=== PATIENT | male | born 1990 | race Caucasian/White ===

== ENCOUNTER 2020-12-13 22:32 | Emergency (ER) | payer OTHER, SELFPAY ==
[2020-12-13 22:43] VITALS: BP 129/88; PULSE 78; RESP 16; TEMP 36.8; O2SAT 98; BMI 27.3
[2020-12-13 23:04] LABS: Strep A Nucleic Acid Negative (Negative)
[2020-12-13 23:39] LABS: Influenza A PCR NEGATIVE (Negative); Influenza B PCR NEGATIVE (Negative); Resp Syncy Virus RNA Qual PCR NEGATIVE (Negative); SARS COV2 PCR INHOUSE NEGATIVE (Negative)
--- NOTE | 2020-12-14 00:18 | ED.GENADULT ---
HPI - General Adult General Chief complaint: Upper Respiratory Symptoms Stated complaint: covid symptoms Time Seen by Provider: 12/14/20 00:11 Source: patient Mode of arrival: ambulatory Limitations: no limitations History of Present Illness HPI narrative: Patient comes emergency room complaining of a sore throat, cough and painful swallowing for the last couple of days. Patient states he is vaccinated for COVID-19. Patient denies any fever chills. Patient complaining of bilateral lymph node swelling in his neck. Related Data Allergies Allergy/AdvReac Type Severity Reaction Status Date / Time latex [LATEX] Allergy Mild RASH Unverified 01/04/20 16:29 midazolam [From VERSED] Allergy Unknown EXTREME Unverified 01/04/20 16:29 CONFUSION versed Allergy Unknown Uncoded 12/06/17 00:00 Review of Systems Review of Systems: Constitutional : No Weight loss, No Fever, No Chills, No Night Sweats, No Fatigue, No Malaise ENT/Mouth : Complaining of sore throat, painful swallowing, bilateral lymph nodes Eyes: No Eye Pain, No Swelling, No Redness, No Foreign Body, No Discharge, No Vision Changes Cardiovascular : No Chest Pain, No SOB, No Dyspnea on Exertion, No Orthopnea, No Edema, No Palpitations Respiratory : Complaining of Cough, No Sputum, No Wheezing, No Smoke Exposure, No Dyspnea Gastrointestinal : No Nausea, No Vomiting, No Diarrhea, No Constipation, No abdominal Pain, No Hematochezia, No Melena Genitourinary : no irregular bleeding, No Dysuria, No Urinary Frequency, No Hematuria, No Urinary Incontinence, No Urgency, No Flank Pain, No Urinary Flow Changes, No Hesitancy Musculoskeletal : No joint pain, No Myalgias, No Joint Swelling Skin : No Skin Lesions, No rash Neuro : No Weakness, No Numbness, No Paresthesias, No Loss of Consciousness, No Dizziness, No Headache Psych : No Anxiety/Panic, No Depression, No SI/HI/AH/VH, No Social Issues, Heme/Lymph: No Bruising, No Bleeding,No Lymphadenopathy Endocrine : No Polyuria, No Polydipsia, No Temperature Intolerance PMFSH Social History Social History Advance Directives: No Advance Directives Information Provided: No Physical Exam Vital Signs: Vital Signs: Last Vital Signs Temp 98.3 F 12/13/20 22:43 Pulse 78 12/13/20 22:43 Resp 16 12/13/20 22:43 BP 129/88 12/13/20 22:43 Pulse Ox 98 12/13/20 22:43 Body Mass Index 27.3 Const: Other: Appearance: Alert. Oriented X3. No acute distress. Eyes: Pupils equal, round and reactive to light. ENT: Erythematous oropharynx, no abscesses, no exudates Neck: Normal inspection. Neck supple. mild bilateral palpable lymph nodes No crepitus CVS: Normal heart rate and rhythm. Pulses normal. Normal S1 and S2 Respiratory: No respiratory distress. Breath sounds normal. No Wheezing. No rales Abdomen: Soft and nontender. No rigidity. No distention. good BS x4 Skin: Skin warm and dry. Normal skin color. Normal skin turgor. Extremities: No lower extremity edema. No lower extremity edema. No Lacerations. No Rash Neuro: Oriented X 3. No motor deficit. No sensory deficit. Moving all extermities. No slurred speech. Course Course Course Narrative: Patient tested negative for COVID-19, RSV and strep throat. Patient was given 1 dose of Decadron and oral lidocaine. Patient having a viral syndromes Medical Decision Making Lab Data Labs: Lab Results 12/13/20 12/13/20 Range/Units 22:50 22:50 Coronavirus (PCR) NEGATIVE (Negative) Influenza Type A (PCR) NEGATIVE (Negative) Influenza Type B (PCR) NEGATIVE (Negative) RSV RNA Qual (PCR) NEGATIVE (Negative) S. pyogenes GrpA JUNO Negative (Negative) Discharge Plan Discharge Clinical Impression: Acute viral syndrome Patient Disposition: Home, Self-Care Instructions: Pharyngitis (ED) Additional Instructions: Please follow-up with your primary care physician tomorrow. If you have any worsening or new symptoms, please return to the emergency room or call 911
[2020-12-14] MEDS: dexAMETHasone sod phosphate 4 MG/ML VIAL 6 MG IVPUSH (00:25)
[2020-12-14] MEDS: Lidocaine HCl Viscous 2 % 15 ML SOLUTION MUCOUS MEM (00:25)
== END 2020-12-14 00:31 | disposition home or self-care (01) ==
PROVIDERS: Emergency Provider Emergency Medicine
DX: B34.9 Viral infection, unspecified (principal); Z20.822 Contact with and (suspected) exposure to COVID-19; J02.9 Acute pharyngitis, unspecified
CPT/HCPCS: 0241U; 36415; 87651; 96374; 99284; J1100

== ENCOUNTER 2021-05-04 20:04 | Emergency (ER) | payer OTHER, SELFPAY ==
--- NOTE | ~2021-05-04 | XR_ITS ---
EXAMINATION: XR HAND, RIGHT CLINICAL INFORMATION: Pain fourth digit injury COMPARISON: None TECHNIQUE: Four views of the right hand. FINDINGS: Fracture of the proximal phalanx fourth digit. Mild distraction of the fracture fragments. Mildly comminuted. XR/XR hand RT 2V IMPRESSION: Fracture proximal phalanx fourth digit.
[2021-05-04 20:26] VITALS: BP 135/72; PULSE 93; RESP 16; TEMP 36; O2SAT 97; BMI 27.3
--- NOTE | 2021-05-04 22:28 | ED_ITS ---
HPI - Extremity Problem General Chief complaint: Extremity Injury, Upper Stated complaint: ?Middle finger fx Time Seen by Provider: 05/04/21 22:28 Source: patient Limitations: no limitations History of Present Illness HPI Narrative: For this is a 30-year-old male who had his hand on his dog's collar with the dog suddenly jumped causing his right ring finger to get twisted underneath the collar. The patient complains of pain to the proximal phalanx of his right ring finger. He denies any numbness or weakness to the hand or finger. He denies any lacerations. Pain is moderately severe, worse with finger movement, aching Related Data Allergies Allergy/AdvReac Type Severity Reaction Status Date / Time latex [LATEX] Allergy Mild RASH Unverified 01/04/20 16:29 midazolam [From VERSED] AdvReac Unknown EXTREME Unverified 05/04/21 20:25 CONFUSION Review of Systems Review of Systems: As per HPI [facility] Social History Social History Advance Directives: No Advance Directives Information Provided: No Physical Exam Vital Signs: Vital Signs: Last Vital Signs Temp 96.8 F 05/04/21 20:26 Pulse 93 05/04/21 20:26 Resp 16 05/04/21 20:26 BP 135/72 05/04/21 20:26 Pulse Ox 97 05/04/21 20:26 BMI result Body Mass Index 27.3 Const: General: healthy appearing Resp: Effort & Inspection: normal respiratory effort Auscultation: clear to auscultation bilaterally Cardio: Rate: regular rate Rhythm: regular rhythm Heart sounds: S1 chelle l heart sound present and S2 normal heart sound present Extrem: Other: Right ring finger with swelling and tenderness over the proxima l phalanx. Finger is neurovascular intact. No tenderness over the hand itself. MDM - Extremity (Nontraumatic) MDM Narrative Medical decision making narrative: Patient with a fracture to his right middle finger, proximal phalanx. Finger was splinted the patient was given ibuprofen for pain. Patient needs orthopedic follow-up Imaging Data Chest x-ray: Radiologist's impression: FINDINGS: Fracture of the proximal phalanx fourth digit. Mild distraction of the fracture fragments. Mildly comminuted.? XR/XR hand RT 2V IMPRESSION: Fracture proximal phalanx fourth digit. Discharge Plan Discharge Clinical Impression: Closed fracture of phalanx of right index finger Patient Disposition: Home, Self-Care Instructions: Finger Fracture (ED) Additional Instructions: Use ibuprofen for pain. Wear the finger splint and follow-up with orthopedics as referred. Referrals: Roger Rivers MD [Physician] - 2 days
[2021-05-04] MEDS: Ibuprofen 600 MG TABLET PO (23:06)
== END 2021-05-04 23:16 | disposition home or self-care (01) ==
PROVIDERS: Emergency Provider Emergency Medicine
DX: S62.600A Fracture of unspecified phalanx of right index finger, initial encounter for closed fracture (principal); M79.644 Pain in right finger(s); X58.XXXA Exposure to other specified factors, initial encounter; Y93.9 Activity, unspecified; Y92.9 Unspecified place or not applicable; Y99.9 Unspecified external cause status; Z79.899 Other long term (current) drug therapy
CPT/HCPCS: 73120; 99283

== ENCOUNTER 2021-05-06 08:32 | Outpatient (REF) | payer OTHER, SELFPAY ==
--- NOTE | ~2021-05-06 | XR_ITS ---
EXAMINATION: XR HAND, RIGHT CLINICAL INFORMATION: Fracture fourth proximal phalanx. Follow-up. COMPARISON: Radiographs right hand 05/04/2021 TECHNIQUE: PA, lateral, and oblique views of the right hand. FINDINGS: Oblique fracture fourth proximal phalanx is similar to prior exam. No significant change in alignment. No new fracture or destructive process. No subluxation or dislocation. XR/XR hand RT min 3V IMPRESSION: Spiral fracture fourth proximal phalanx similar to previous exam 05/04/2021.
== END 2021-05-06 08:33 | disposition home or self-care (01) ==
LOC: HO.HOSX 08:32
PROVIDERS: Visit Provider Physician Assistant
DX: S62.614A Displaced fracture of proximal phalanx of right ring finger, initial encounter for closed fracture (principal)
CPT/HCPCS: 73130

== ENCOUNTER 2021-05-12 07:45 | Day surgery (SDC) | payer OTHER, SELFPAY ==
--- NOTE | 2021-05-09 12:06 | HO.ANESPROP2 ---
Documented by User: Karli Ontiveros NP 05/09/21 12:07 HPI - Anesthesia Eval Consult details Narrative: 30yo M for Right Ring finger fx,proximal phalanx,CRPP vs ORIFFinger Fx ORIF Midazolan allergy - confusion [facility] Active Problems Active Problems: All Active Problems (Updated 05/06/21 @ 12:52 by Dunia Shay PA-C) Fracture of proximal phalanx of digit of right hand (Acute) Social History Social History (Updated 05/06/21 @ 10:40 by Seth Menon) Patient Tobacco Use Status: Never used Tobacco Use of substances other than those prescribed or required for medical reasons: Yes Substance Use Frequency: Occasionally Are you DNR?: No Advance Directives: No Advance Directives Information Provided: Yes Current occupational status: employed 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 Allergies Allergy/AdvReac Type Severity Reaction Status Date / Time latex [LATEX] Allergy Mild RASH Verified 05/12/21 08:10 midazolam [From VERSED] AdvReac Unknown EXTREME Verified 05/12/21 08:10 CONFUSION Exam Exam Date and Time: May 09, 2021 1207 Assessment and Plan Assessment Anesthesia Assessment: Chart Reviewed Documented by User: Lenny Ball 05/12/21 12:14 [facility] Family History Family history of problems with anesthesia: No Surgical History History of Problems with Anesthesia: No Social History Social History (Updated 05/06/21 @ 10:40 by Seth Menon) Patient Tobacco Use Status: Never used Tobacco Use of substances other than those prescribed or required for medical reasons: Yes Substance Use Frequency: Occasionally Are you DNR?: No Advance Directives: No Advance Directives Information Provided: Yes Current occupational status: employed 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 Allergies Allergy/AdvReac Type Severity Reaction Status Date / Time latex [LATEX] Allergy Mild RASH Verified 05/12/21 08:10 midazolam [From VERSED] AdvReac Unknown EXTREME Verified 05/12/21 08:10 CONFUSION Exam Airway Mallampati Class: II TM Dist: >3cm Neck ROM: Full Loose/Missing/Broken Teeth: Yes Heart: rrr Lungs: bl breath sounds Assessment and Plan Assessment Anesthesia Assessment: Anesthesia Plan Discussed Final Anesthetic Review Family History of Problems with Anesthesia: No History of Problems with Anesthesia: No NPO: Yes ASA Class: I Final Preanesthetic Review: Meds/Allgs Chart Reviewed and Anes Risks/Benef Reviewed Patient Risk: Intermediate Procedure Risk: Intermediate Anesthetic Plan Anesthetic Plan: GA Disposition: Standard PACU
--- NOTE | ~2021-05-12 | FL_ITS ---
EXAMINATION: XR FLUOROSCOPY WITH IMAGES CLINICAL INFORMATION: Fourth finger fracture COMPARISON: Previous x-rays most recent 05/06/2021 TECHNIQUE: Fluoroscopy performed by Ramone. Fluoroscopy time: 1 minutes DAP: [id number] Images: 4 FINDINGS: Images demonstrate 2 K wires or pins transfixing the fracture of the proximal phalanx of the fourth finger with improved alignment. FL/FL guidance in OR IMPRESSION: Fluoroscopic guidance for ORIF of right fourth finger proximal phalanx fracture.
[2021-05-12 08:25] VITALS: BMI 28.0
[2021-05-12 08:38] VITALS: BP 109/75; PULSE 77; RESP 16; TEMP 37.1; O2SAT 97
[2021-05-12] MEDS: Lactated Ringers 1,000 ML 100 ML IVCONT (08:47)
--- NOTE | 2021-05-12 10:09 | W.PM.OPN ---
Operative Note Operative Note Date of Service: 05/12/21 Narrative: Operative Note Narrative: Preop diagnosis: 1. Right ring finger comminuted proximal phalanx fracture Postop diagnosis: Same Procedure: 1. Right ring finger closed reduction percutaneous pinning Surgeon: Maite Kim MD Anesthesia: General Findings: spiral oblique fracture of the right ring finger proximal phalanx Implants: 0.045 K-wires x2 Tourniquet time: none EBL: 5.0 ml Specimen: none Drains: None Complications: None Disposition: Brought to the recovery room in stable condition Plan: Follow-up in 10-14 days for wound check, pre clinic radiographs and placement in a short-arm finger spica cast. Anticipate K-wire removal at between 4-5 weeks postop pending evidence of interval bony healing. Indications: The patient is a 30 year old man with a spiral obliqueright ring finger proximal phalanx fracture . The risks and benefits of operative treatment, including but not limited to risk of damage to blood vessels, nerves, tendons, infection, recurrence, persistent pain or numbness, incomplete resolution of preoperative symptoms, or need for further surgery were discussed with the patient and they wished to proceed with surgery. Procedure: Once consent was obtained patient was brought back to the operating suite and placed in the operating table in a supine position. . Perioperative antibiotics and anesthesia was administered by the anesthesia team. A tourniquet was applied to the proximal aspect of the right upper extremity and the limb was prepped and draped in a standard surgical fashion. the tourniquet was not inflated during this case. The FluoroScan was used during the case to assess fracture alignment and position of all implants. A gentle closed reduction was performed on the patient's right ring finger proximal phalanx fracture. I was very satisfied with our closed reduction. I then passed a 0.045 K-wire retrograde through the distal radial corner of the proximal phalanx. This was then advanced retrograde across the fracture site and into the shaft of the proximal phalanx. I then passed a 2nd 0.045 K-wire through the ulnar base of the proximal phalanx. This was then advanced distally across the fracture site and into the more distal fragment of the proximal phalanx. I was very satisfied with our reduction and placement of both of these K-wires On multiple fluoroscopic images. Clinical alignment was also assessed both in extension and in flexion and there was no crossover or evidence of rotational malalignment. the pins were cut short and pin caps applied. The wounds were copiously irrigated with normal saline. A digital block was performed with some 1% lidocaine with epinephrine for postop pain control and a sterile dressing was applied. the patient was placed in a volar splint extending from the fingertips of the middle ring and small fingers to the volar forearm. The patient appears to have tolerated the procedure well and with no complications. All digits were well vascularized conclusion of the case.
[2021-05-12 11:31] VITALS: BP 126/73; PULSE 87; RESP 15; TEMP 36.8; O2SAT 99
[2021-05-12 11:36] VITALS: BP 132/81; PULSE 75; RESP 17; O2SAT 97
[2021-05-12 11:41] VITALS: BP 122/79; PULSE 76; RESP 17; O2SAT 96
[2021-05-12 11:46] VITALS: BP 115/71; PULSE 74; RESP 17; O2SAT 96
[2021-05-12] MEDS: oxyCODONE HCl Immed Release 5 MG TABLET PO (11:54)
[2021-05-12] MEDS: Acetaminophen 325 MG TABLET 650 MG PO (11:55)
[2021-05-12 12:01] VITALS: BP 112/72; PULSE 77; RESP 16; TEMP 36.8; O2SAT 98
== END 2021-05-12 12:43 | disposition home or self-care (01) ==
PROVIDERS: Visit Provider Orthopaedic Surgery
PROC: (CPT 26727; principal; 2021-05-12 09:40)
DX: S62.614A Displaced fracture of proximal phalanx of right ring finger, initial encounter for closed fracture (principal); X50.1XXA Overexertion from prolonged static or awkward postures, initial encounter; Y93.K1 Activity, walking an animal; Y92.9 Unspecified place or not applicable; Y99.8 Other external cause status; Z91.040 Latex allergy status; Z88.8 Allergy status to other drugs, medicaments and biological substances
CPT/HCPCS: 26727; J0690; J1100; J2405; J3010

== ENCOUNTER 2021-05-27 08:55 | Outpatient (REF) | payer OTHER, SELFPAY ==
--- NOTE | ~2021-05-27 | XR_ITS ---
EXAMINATION: XR HAND, RIGHT CLINICAL INFORMATION: Right hand pain. COMPARISON: 05/06/2021 TECHNIQUE: PA, lateral, oblique, and [place] views of the right hand. FINDINGS: 2 K wires are evident through the spiral fracture of the ring finger proximal phalangeal shaft. Alignment is anatomic. Early osseous bridging is possible, though the majority of the fracture lines remain apparent. Soft tissues are swollen. No new fractures. XR/XR hand RT min 3V IMPRESSION: Unchanged, near-anatomic alignment of the ring finger proximal phalangeal fracture status post fixation.
== END 2021-05-27 08:56 | disposition home or self-care (01) ==
LOC: HO.HOSX 08:55
PROVIDERS: Visit Provider Orthopaedic Surgery
DX: S62.614D Displaced fracture of proximal phalanx of right ring finger, subsequent encounter for fracture with routine healing (principal)
CPT/HCPCS: 73130

== ENCOUNTER 2021-06-11 08:25 | Outpatient (REF) | payer OTHER, SELFPAY ==
--- NOTE | ~2021-06-11 | XR_ITS ---
EXAMINATION: XR HAND, RIGHT CLINICAL INFORMATION: Fracture right third proximal phalanx. Follow-up. COMPARISON: Radiographs right hand and 05/27/2021, 05/06/2021 TECHNIQUE: PA, lateral, and oblique views of the right hand. FINDINGS: The fracture fourth finger proximal phalanx is unchanged in alignment. Fracture is fixed with 2 K wires. Fracture line is still visible. Hardware is intact. No destructive process. XR/XR hand RT min 3V IMPRESSION: No change in alignment. Hardware intact. Fracture line still visible.
== END 2021-06-11 08:26 | disposition home or self-care (01) ==
LOC: HO.HOSX 08:25
PROVIDERS: Visit Provider Orthopaedic Surgery
DX: S62.614D Displaced fracture of proximal phalanx of right ring finger, subsequent encounter for fracture with routine healing (principal); M25.641 Stiffness of right hand, not elsewhere classified
CPT/HCPCS: 73130

== ENCOUNTER 2021-07-09 08:13 | Outpatient (REF) | payer OTHER, SELFPAY ==
--- NOTE | ~2021-07-09 | XR_ITS ---
EXAMINATION: XR HAND, RIGHT CLINICAL INFORMATION: Right hand pain. Fracture follow-up. COMPARISON: Multiple priors, most recent right hand radiographs dated 06/11/2021. TECHNIQUE: PA, lateral, and oblique views of the right hand. FINDINGS: Redemonstration of an oblique fracture line through the 4th proximal phalanx in unchanged alignment. No significant interval change at the fracture line when compared to the prior examination. Interval removal of the previously seen orthopedic pins with associated tracts. No acute fracture or dislocation. No joint space narrowing or marginal osteophytes. No osseous erosion. XR/XR hand RT min 3V IMPRESSION: Fourth proximal phalangeal fracture in unchanged anatomic alignment and overall similar in appearance when compared to the prior radiographs. Interval removal of the previously seen orthopedic pins.
== END 2021-07-09 08:14 | disposition home or self-care (01) ==
LOC: HO.HOSX 08:13
PROVIDERS: Visit Provider Orthopaedic Surgery
DX: S62.614A Displaced fracture of proximal phalanx of right ring finger, initial encounter for closed fracture (principal); M25.641 Stiffness of right hand, not elsewhere classified
CPT/HCPCS: 73130

== ENCOUNTER 2022-02-10 11:30 | Outpatient (REF) | payer OTHER, SELFPAY ==
[2022-02-10 12:50] LABS: Hematocrit 45.4 % (42.0-52.0); Hemoglobin 15.2 g/dl (14.0-18.0); Mean Corpuscular HGB Conc 33.5 g/dl (31.0-36.0); Mean Corpuscular Hemoglobin 28.5 pg (27.0-33.0); Mean Corpuscular Volume 85.2 fL (80.0-98.0); Mean Platelet Volume 10.1 fL (9.4-12.4); Platelet Count 251 X10*3/uL (160-400); Red Blood Count 5.33 X10*6/uL (4.60-5.80); Red Cell Distribution Width 13.2 % (11.0-16.0); White Blood Count 6.2 X10*3/uL (4.8-10.8)
[2022-02-10 13:29] LABS: Alanine Aminotransferase 21 U/L (0-40); Albumin Level 4.7 g/dL (3.5-5.0); Alkaline Phosphatase 72 U/L (39-117); Anion Gap 15 (12-20); Aspartate Amino Transferase 21 U/L (5-37); Bilirubin Total 0.5 mg/dL (0.0-1.0); Blood Urea Nitrogen 19 mg/dL (9-16); Calcium 9.8 mg/dL (8.4-10.2); Carbon Dioxide 27 mmol/L (22-29); Chloride 103 mmol/L (96-108); Cholesterol 302 mg/dL; Estimated Glomerular Filt Rate > 60; Glucose Fasting 86 mg/dL (60-99); HDL Cholesterol 40 mg/dL; LDL Cholesterol Calculated 246 mg/dl; Potassium 4.6 mmol/L (3.3-5.1); Sodium 140 mmol/L (135-145); Total Protein 7.6 g/dL (6.5-8.0); Triglycerides 81 mg/dL
[2022-02-10 13:41] LABS: TSH reflex Free T4 0.76 uIU/mL (0.32-4.0)
== END 2022-02-10 11:31 | disposition home or self-care (01) ==
LOC: HO.LAB 11:30
PROVIDERS: PCP Physician Assistant; Visit Provider Physician Assistant
DX: Z13.29 Encounter for screening for other suspected endocrine disorder (principal); E78.01 Familial hypercholesterolemia
CPT/HCPCS: 36415; 80053; 80061; 84443; 85027

== ENCOUNTER 2023-02-22 07:53 | Outpatient (AMB) | payer OTHER, SELFPAY ==
[2023-02-22 07:58] VITALS: BP 114/72; PULSE 68; O2SAT 95; BMI 28.5
--- NOTE | 2023-02-22 07:58 | MHC.PC.OV ---
Vital Signs 02/22/23 07:58 Height 5 ft 9 in Weight 193 lb BMI 28.5 BP 114/72 Blood Pressure Location Lt brachial Position Sitting Pulse 68 Pulse Source Pulse Oximeter Pulse Oximetry (%) 95 Oxygen Delivery Method Room Air Intake Visit Reasons: PHYSICAL Allergies latex [LATEX] Allergy (Mild, Verified 02/22/23 08:05) RASH midazolam [From VERSED] Adverse Reaction (Unknown, Verified 02/22/23 08:05) EXTREME CONFUSION Medication List - Last Reconciled 02/22/23 by Rah Kahn PA-C No Known Home Meds Tobacco use date assessed: 02/22/23 Dental Screening Dental Screen Date: 02/22/23 Did you have a dental visit in the last 12 months?: Yes Did you have a dental problem in the last 6 months where you did not have access to dental care?: No Was dental information given to patient?: Patient has dentist HPI PHYSICAL HPI Details Patient is a 32 year male here today as a new patient annual physical. Patient has a past medical history significant for elevated total cholesterol, thyroid nodule. Most recent lipid panel showing elevated total cholesterol and LDL. Likely has a familial hypercholesterolemia. May asking for a coronary artery calcium score test. Was on statin therapy in the past though was not compliant with daily use of this medication. He is now willing to restart medication for his cholesterol. .. History of thyroid nodule: Did have biopsy in 2012 with negative pathology. He was told he needed surveillance ultrasounds thus will order. Otherwise TSH has been stable Vaccine: Up-to-date with COVID vaccine, Needs Flu vaccine. 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 1. Little interest or pleasure in doing things: not at all 2. Feeling down, depressed, or hopeless: not at all 3. Trouble falling or staying asleep, or sleeping too much: not at all 4. Feeling tired or having little energy: not at all 5. Poor appetite or overeating: not at all 6. Feeling bad about yourself - or that you are a failure or have let yourself or your family down: not at all 7. Trouble concentrating on things, such as reading the newspaper or watching television: not at all 8. Moving or speaking so slowly that other people could have noticed. Or the opposite - being so fidgety or restless that you have been moving around a lot more than usual: not at all 9. Thoughts that you would be better off or of hurting yourself in some way: not at all Total score: 0 Depression Screening Interpretation: Negative Depression Screening Done: Yes 19763 - PHQ-9 Billing: Yes Source: Developed by Drs. Vin Garza, Ronit Long, Kane Burger and colleagues, with an educational emma from [employer]. Thrive Questionnaire Date Thrive assessed: 02/22/23 I am a: Patient What is your living situation today?: I have a steady place to live Within the past 12 months, did the food you bought not last and you didn't have the money to get more?: Never true Within the past 12 months, did you worry whether your food would run out before you got money to buy more?: Never true Do you have trouble paying for medicines?: No Do you have trouble getting transportation to medical appointments?: No Do you have trouble paying your heating and electricity bill?: No Do you have trouble taking care of your child, family member or friend?: No Do you have trouble with day-to-day activities such as bathing, preparing meals, shopping, managing finances, etc.?: No Are you currently unemployed and looking for a job?: No Are you interested in more education?: No Currently or been in a relationship where the following occur: no concerns reported AUDIT C Alcohol Use Questionnaire (AUDIT-C) 1. How often do you have a drink containing alcohol?: Monthly or less 2. How many drinks containing alcohol do you have on a typical day when you are drinking?: 1 or 2 3. How often do you have six or more drinks on one occasion?: Never Total Score: 1 KISHORE-7 AMB Questionnaire KISHORE-7 Date KISHORE - 7 assessed: 02/22/23 Feeling nervous, anxious, or on edge: 0 = Not at all Not being able to stop or control worryin = Not at all Worrying too much about different things: 0 = Not at all Trouble relaxin = Not at all Being so restless that it is hard to sit still: 0 = Not at all Becoming easily annoyed or irritable: 0 = Not at all Feeling afraid as if something awful might happen: 0 = Not at all Total KISHORE-7 score (0-4 normal; 5-9 mild; 10-14 moderate; 15-21 severe): 0 Source: Developed by Drs. Vin Garza, Ronit Long, Kane Burger and colleagues, with an educational emma from [employer]. KISHORE-7 Assessment Billing KISHORE-7 Assessment Tool: KISHORE-7 Assessment 39986 Review of Systems Const Denies body aches, Denies chills, Denies excessive sweating, Denies fatigue, Denies fever(s) and Denies headache(s) Eyes Denies blurry vision ENT Denies dysphagia, Denies vertigo, Denies dizziness, Denies headache(s), Denies hearing loss and Denies tinnitus Card Denies chest pain, Denies chest pain with activity, Denies syncope, Denies irregular heart rhythm and Denies dyspnea Resp Denies chest congestion, Denies cough, Denies hemoptysis, Denies dyspnea and Denies wheezing GI Denies abdominal pain, Denies melena, Denies hematochezia, Denies coffee ground emesis, Denies dysphagia, Denies diarrhea, Denies nausea and Denies vomiting Denies difficulty urinating, Denies dysuria, Denies urinary frequency, Denies urinary hesitancy and Denies urinary urgency Musc Denies arthralgias, Denies limited range of motion, Denies muscle cramps and Denies muscle weakness Skin/Breast Denies rash and Denies skin ulcer Neuro Denies Abnormal speech present, Denies confusion, Denies vertigo, Denies dizziness, Denies syncope, Denies headache(s), Denies memory loss and Denies seizure-like activity Psych Denies anxiety, Denies confusion, Denies depression, Denies memory loss, Denies panic attacks and Denies paranoia Endo Denies excessive sweating, Denies fatigue, Denies flushing, Denies polydipsia and Denies polyuria Aller/Immun Denies wheezing Physical exam (Primary Care) Vital Signs: Last Vital Signs Pulse 68 02/22/23 07:58 BP 114/72 02/22/23 07:58 Pulse Ox 95 02/22/23 07:58 Oxygen Delivery Method Room Air 02/22/23 07:58 BMI result Body Mass Index 28.5 Tobacco/Smoking Status: Tobacco use Status Tobacco use date assessed 02/22/23 02/22/23 08:04 Patient Tobacco Use Status Never used Tobacco 02/22/23 08:13 e-Cigarette/Vaping Use Never Used 02/22/23 08:13 PHQ-9: PHQ-9 Score PHQ-9: Total score 0 02/22/23 08:32 Depression Screening Interpretation: Negative Thrive Assessment: Date of Thrive Assessment Date Thrive assessed 02/22/23 02/22/23 08:04 Currently or been in a relationship where the following occur: no concerns reported Const General: cooperative, comfortable, no acute distress, alert and awake; No confusion Orientation/consciousness: oriented to person, oriented to place, patient oriented x3 and No confusion HENMT Head: Yes normocephalic Ears: external ears normal and TM's normal bilaterally Face and sinus: No sinus tenderness Mouth: Normal oral and palatal mucosa present and tongue normal Teeth and gingiva: dentition normal and gingiva normal Throat: Yes posterior oropharynx normal, Yes tonsils normal and Yes uvula midline Eyes Conjunctivae: conjunctivae normal Sclerae: sclerae normal Pupils: Equal, round and reactive pupils present EOM: EOMs intact bilaterally Direct Ophthalmoscopy: No no photophobia Neck Neck: Yes no lymphadenopathy, No tender and Yes no JVD Thyroid: Thyroid normal Carotids: no bruits Chest Chest palpation & inspection: no tenderness Resp Effort & Inspection: normal respiratory effort, no audible wheezes, not labored and no stridor Auscultation: no crackles, no rales, no rhonchi and no wheezes Cardio Jugular venous distension: no JVD Rate: regular rate, not bradycardic and not tachycardic Rhythm: regular rhythm Bruits: no carotid bruits Peripheral pulses: Peripheral pulses 2+ throughout GI Inspection: Yes normal to inspection, No abdominal wall ecchymosis and No visible herniation Palpation (GI): Soft to palpation, nontender, no guarding, not rigid and No hepatosplenomegaly present Auscultation: normoactive bowel sounds General: Yes no CVA tenderness Back/Spine/Pelvis Back: no CVA tenderness and No back tenderness Cervical Spine: cervical ROM normal Thoracic/Lumbar Spine: thoracic and lumbar spine normal to inspection, straight leg raise negative bilaterally, No thoraco-lumbar ROM limited and No lumbar spinal tenderness Skin Lesions: no lesions Rashes: no rashes Wounds: no wounds Neuro General: oriented to person, oriented to place, patient oriented x3, CN's II-XI intact bilaterally and No confusion Cranial nerves: Yes Equal, round and reactive pupils present and Yes Normal accommodation reflex present Cognition (Neuro): normal cognition Speech: No Abnormal speech present Gait exam (Neuro): Normal gait present Motor exam (neuro): 5/5 motor strength present throughout Extrem Right upper extremity: full ROM; no cyanosis Left upper extremity: full ROM; no cyanosis Right lower extremity: no edema Left lower extremity: no edema Psych Appearance: grossly normal Mental Status: mental status grossly normal Affect: normal affect Attitude: cooperative Thought process: Normal thought process present Office Procedures Flu Questionnaire Does the patient have a severe egg allergy?: No Does the patient have severe life threatening allergies?: No Does the patient have a fever or illness today?: No Has the patient ever had Guillain-[place] Syndrome?: No Has the patient ever had any past reaction to a flu shot?: No Immunizations flu vacc [id number] 6mos up(PF) 60 mcg(15 mcgx4)/0.5 mL IM syringe Performing Provider: Rah Kahn PA-C [facility] Administered by: Radha Guillen CMA on 02/22/23 08:32 Dose Route Admin Location Dispensed Lot Number Expiration Date NDC Manager Radio 0.5 mL IM Left Deltoid 0.5 mL [id number] 10/17/23 [id number] [facility] VIS Given Date VIS Provided VIS Publication Date 02/22/23 Single Vaccine 20 Eligibility Eligibility Date Funding Source Not [facility] Eligible 02/22/23 Private Assessment and Plan Assessment & Plan (1) Annual physical exam: Code(s): Z00.00 - Encounter for general adult medical examination without abnormal findings (2) HLD (hyperlipidemia): Code(s): E78.5 - Hyperlipidemia, unspecified Qualifiers: Hyperlipidemia type: familial hypercholesterolemia Qualified Code(s): E78.01 - Familial hypercholesterolemia Plan: Patient reports he has had high cholesterol since childhood. Most recent lipid panel showing total cholesterol above 300 and LDL of 243. He was on statin therapy in the past though has not been adherent to the use of it. He is willing now to start cholesterol medication. Family asking for coronary artery calcium score which will be ordered. Needs to be paid out pocket for this exam. (3) Screening for diabetes mellitus (DM): Code(s): Z13.1 - Encounter for screening for diabetes mellitus (4) Thyroid nodule: Code(s): E04.1 - Nontoxic single thyroid nodule Plan: Patient does have a history of thyroid nodules which were biopsied in 2013 with negative pathology. Most recent TSH was normal. Will order ultrasound of thyroid to continue surveillance on thyroid nodule. Orders: Orders Influenza [id number] Immunization Today Z23 - Encounter for immunization Lipid Panel Today E78.01 - Familial hypercholesterolemia Comprehensive [place]. Panel Fast Today Z13.1 - Encounter for screening for diabetes mellitus TSH reflex Free T4 Today E04.1 - Nontoxic single thyroid nodule US thyroid Today E04.1 - Nontoxic single thyroid nodule Lipid Panel 3 Months E78.01 - Familial hypercholesterolemia Comprehensive [place]. Panel Fast 3 Months E78.01 - Familial hypercholesterolemia Medications: New rosuvastatin (Crestor) 40 mg PO DAILY 90 days 90 tabs 2RF E78.01 - Familial hypercholesterolemia Coding Level of Care Code Est Pt Prev Care [id number]) Diagnoses Annual physical exam Z00.00 Familial hypercholesterolemia E78.01 Hyperlipidemia type: familial hypercholesterolemia Screening for diabetes mellitus (DM) Z13.1 Thyroid nodule E04.1 Additional Codes KISHORE-7 Assessment Billing - KISHORE-7 Assessment Tool: KISHORE-7 Assessment 12325 ([id number])
== END 2023-02-22 08:37 | disposition home or self-care (01) ==
PROVIDERS: Visit Provider Physician Assistant
DX: Z00.00 Encounter for general adult medical examination without abnormal findings (principal); E78.01 Familial hypercholesterolemia; Z13.1 Encounter for screening for diabetes mellitus; E04.1 Nontoxic single thyroid nodule; Z23 Encounter for immunization
CPT/HCPCS: 90471; 90686; 99395

== ENCOUNTER 2023-02-22 08:51 | Outpatient (REF) | payer OTHER, SELFPAY ==
[2023-02-22 10:37] LABS: Alanine Aminotransferase 22 U/L (0-40); Albumin Level 4.6 g/dL (3.5-5.0); Alkaline Phosphatase 79 U/L (39-117); Anion Gap 11 (12-20); Aspartate Amino Transferase 22 U/L (5-37); Bilirubin Total 0.4 mg/dL (0.0-1.0); Blood Urea Nitrogen 17 mg/dL (9-16); Calcium 9.8 mg/dL (8.4-10.2); Carbon Dioxide 29 mmol/L (22-29); Chloride 105 mmol/L (96-108); Cholesterol 317 mg/dL (<200); Estimated Glomerular Filt Rate > 60; Glucose Fasting 100 mg/dL (60-99); HDL Cholesterol 40 mg/dL (>40); LDL Cholesterol Calculated 257 mg/dL (<100); Potassium 4.3 mmol/L (3.3-5.1); Sodium 141 mmol/L (135-145); Total Protein 7.8 g/dL (6.5-8.0); Triglycerides 103 mg/dL (<150)
[2023-02-22 10:53] LABS: TSH reflex Free T4 0.72 uIU/mL (0.32-4.0)
== END 2023-02-22 08:52 | disposition home or self-care (01) ==
LOC: HO.LAB 08:51
PROVIDERS: PCP Physician Assistant; Visit Provider Physician Assistant
DX: Z13.1 Encounter for screening for diabetes mellitus (principal); E04.1 Nontoxic single thyroid nodule; E78.01 Familial hypercholesterolemia
CPT/HCPCS: 36415; 80053; 80061; 84443

== ENCOUNTER 2023-04-08 12:16 | Outpatient (REF) | payer OTHER, SELFPAY ==
--- NOTE | ~2023-04-08 | US_ITS ---
EXAMINATION: US THYROID CLINICAL INFORMATION: Nontoxic single thyroid nodule. COMPARISON: None available. TECHNIQUE: Linear transducer morales-scale and color Doppler examination with attention to the region of the thyroid. FINDINGS: SIZE: Measurements of the thyroid lobes and nodules are given in sagittal, anteroposterior and transverse dimensions respectively. Right Thyroid Lobe: 4.10 x 1.60 x 1.50 cm, volume 5.1 mL. Parenchyma: The gland echotexture is homogeneous. Thyroid vascularity is normal. Left Thyroid Lobe: 3.4 x 1.41 x 1.5 cm, volume 3.7 mL. Parenchyma: The gland echotexture is homogeneous. Thyroid vascularity is normal. Isthmus: 0.28 cm in maximum AP dimension. Estimated total number of nodules greater than or equal to 1 cm: 0. Strip Cutter nodules are described as follows: 1. Location: Right anterior mid. Size: 0.29 x 0.18 x 0.20 cm, volume 0.01 mL. Nodule characteristics: Composition: Spongiform (0). Echogenicity: Hypoechoic (2). Shape: Not taller than wide (0). Margins: Smooth (0). Echogenic Foci: None (0). ACR TI-RADS total points: 2 ACR TI-RADS category: TR 1 2. Location: Left inferior. Size: 0.6 x 0.44 x 0.46 cm, volume 0.12 mL. Nodule characteristics: Composition: Spongiform (0). Echogenicity: Hypoechoic (2). Shape: Not taller than wide (0). Margins: Smooth (0). Echogenic Foci: None (0). ACR TI-RADS total points: 2 ACR TI-RADS category: TR 1 NODES: No lymphadenopathy is seen in the tissue surrounding the thyroid gland. US/US thyroid IMPRESSION: Normal size homogeneous thyroid gland with 2 subcentimeter nodules, TR 1. No further follow-up is recommended. ACR TI-RADS RECOMMENDATION REFERENCE: Ultrasound-guided fine-needle aspiration, followup ultrasound, no further follow up. * TR1 (0 point) and TR2 (2 points): No FNA or follow up. * TR3 (3 points): FNA if more than or equal to 2.5 cm in maximum dimension, followup ultrasound in 1, 3 and 5 years if 1.5 to 2.4 cm in maximum dimension. * TR4 (4-6 points): FNA if more than or equal to 1.5 cm in maximum dimension, followup ultrasound in 1, 2, 3 and 5 years if 1 to 1.4 cm in maximum dimension. * TR5 (more than or equal to 7 points): FNA if more than or equal to 1 cm in maximum dimension, followup ultrasound every year for 5 years if 0.5 to 0.9 cm in maximum dimension. * TR3, TR4 or TR5 nodules that are below the size threshold for followup receive no follow up.
== END 2023-04-08 12:17 | disposition home or self-care (01) ==
LOC: HO.US 12:16
PROVIDERS: PCP Physician Assistant; Visit Provider Physician Assistant
DX: E04.1 Nontoxic single thyroid nodule (principal)
CPT/HCPCS: 76536

== ENCOUNTER 2023-11-17 10:23 | Outpatient (REF) | payer SELFPAY ==
[2023-11-17 11:32] LABS: Alanine Aminotransferase 16 U/L (0-40); Albumin Level 4.6 g/dL (3.5-5.0); Alkaline Phosphatase 73 U/L (39-117); Anion Gap 12 (12-20); Aspartate Amino Transferase 18 U/L (5-37); Bilirubin Total 0.4 mg/dL (0.0-1.0); Blood Urea Nitrogen 12 mg/dL (9-16); Calcium 10.3 mg/dL (8.4-10.2); Carbon Dioxide 28 mmol/L (22-29); Chloride 103 mmol/L (96-108); Cholesterol 301 mg/dL (<200); Estimated Glomerular Filt Rate > 60; Glucose Fasting 99 mg/dL (60-99); HDL Cholesterol 38 mg/dL (>40); LDL Cholesterol Calculated 232 mg/dL (<100); Potassium 4.2 mmol/L (3.3-5.1); Sodium 139 mmol/L (135-145); Total Protein 7.9 g/dL (6.5-8.0); Triglycerides 157 mg/dL (<150)
[2023-11-18 11:09] LABS: Lyme Abs Screen <0.90 index
== END 2023-11-17 10:24 | disposition home or self-care (01) ==
LOC: HO.LAB 10:23
PROVIDERS: PCP Physician Assistant; Visit Provider Physician Assistant
DX: W57.XXXA Bitten or stung by nonvenomous insect and other nonvenomous arthropods, initial encounter (principal); T14.8XXA Other injury of unspecified body region, initial encounter; E78.01 Familial hypercholesterolemia
CPT/HCPCS: 36415; 80053; 80061; 86617; 86618